=== PATIENT | female | born 1960 | race Hispanic/Latino ===

== ENCOUNTER → 2018-07-10 | Outpatient (CLI) | payer OTHER ==
--- NOTE | 2018-07-10 11:10 | Diagnostic Imaging Report ---
Exam: Lumbar spine complete History: Low back pain x1 week Comparison: None. Findings: There are 5 nonrib-bearing lumbar-type vertebral bodies. No acute, displaced fracture or subluxation. No pars interarticularis defects are identified on the oblique radiographs. The intervertebral disc spaces are relatively well-maintained, with mild degenerative osteophytosis at multiple levels of the thoracolumbar spine. Bilateral facet arthropathy at L5-S1. Sacroiliac joints are intact. Sacral foramina are intact superiorly. Inferiorly, the sacral body is obscured by rectal gas and stool. Impression: No acute osseous abnormality. Mild multilevel degenerative disc changes and facet arthropathy, worst at L5-S1. Signed by: Dr. Mihir Cowan M.D. on 07/10/2018 11:06 AM
== END ==
LOC: RAD 10:21
PROVIDERS: ATTEND Internal Medicine
DX: M54.5 Low back pain (principal)
CPT/HCPCS: 72110